=== PATIENT | female | born 1935 | race Caucasian/White ===

== ENCOUNTER 2024-12-09 05:53 | Emergency (ER) | payer MEDICARE, SELFPAY ==
--- OUTSIDE RECORDS SUMMARY | 2024-12-04 10:51 | XMS_ITS | Continuity of Care Document ---
Author Organization [facility] Address [address] [place] [id number] Phone Care Team Providers Care Needle Punch Operator Name Role Phone Gaby Dominguez MOLD SWABBER-C Primary Care Provider + Gaby Dominguez MOLD SWABBER-C Attending Provider [phone] Samuel Bailey DO Attending Provider Care Teams Patient Care Team Team Status: Active Member Role/Relationship Status Dates Gaby Dominguez NP-C Primary Care Provider Active Visit Care Team Team Status: Inactive Member Role/Relationship Status Dates Gaby Dominguez NP-C Primary Care Provider Active Start: October 04, 2024 End: October 04, 2024Rock Whipple ProviderActiveStart: October 04, 2024 End: October 04, 2024 Patient Care Team Team Status: Inactive Member Role/Relationship Status Dates Gaby Dominguez NP-C Primary Care Provider Active Start: December 04, 2024 End: December 04micheal Bailey DOAttlorena ProviderActiveStart: December 04, 2024 End: December 04, 2024 Chief Complaint and Reason for Visit Chief Complaint Admit Date N18.32 E56.9 October 04, 2024 3: 18pm Reason for Visit Admit Date Mild cognitive impairment December 04, 2024 1:29pm Parkinsons disease December 04, 2024 1 :29pm Reason for Referral Type Reason(s) Provider Provider Contact Information James portillo Address Start Date Mild cognitive impairment G31.84 - Mild cognitive impairment of uncertain or unknown jvtixsclN62.84 - Mild cognitive impairment of uncertain or unknown etiologyBe Determined , ToOctober 2024 Allergies, Adverse Reactions, Alerts Allergen Type Severity Reaction Last Updated Verified Status Comments Iodinated Contrast Media Allergy Unknown Unknown Reaction, hives December 04, 2024 1:37pm Yes Active latexAllergyUnknownThroat swells and welts on faceOctober 2024 1:37pmYes Activelatex glovesmethylprednisoloneAllergyUnknownnausea/vomittingOctober 2024 1:37pmYesActivemorphineAllergyUnknownSwelling of Lip/Tongue/Throat, hives December 04, 2024 1:37pmYesActivepenicillamineAllergyUnknownhivesOctober 2024 1:37pmYesActivePenicillinsAllergyUnknownHivesOctober 2024 1:37pmYes ActiveenvironmentalAdverse ReactionMildNauseaFebruary 2023 4:19pmNoActive Social History Smoking Status Status Start Date End Date Date of Observa tion Smokes tobacco daily (finding) April 07, 2024 7:16pm Observation Status Observation Response Date of Response Legal Sex Female (finding) [facility] 1935 Family History Relationship Condition Age at Onset Recorded Date/T willie father Family history of co ronary artery bypass surgery Unknown Malignant neoplasm of throatUnknownmotherMalignant neoplasm of colonUnknown brotherHistory of colectomyUnknownsisterRenal failureUnknownbrotherDiabetes mellitusUnknownfatherDiabetes mellitusUnknownHypertensionUnknownDeceasedUnknown Heart diseaseUnknownMalignant neoplasmUnknownfamily memberDeceasedUnknownmother Heart diseaseUnknownDeceasedUnknownMalignant neoplasmUnknownsisterDiabetes mellitusUnknown Problems Active Problems Problem Diagnosis/Recorded Date Onset Date Stat us Left lower quadrant pain November 20, 2018 9:33am Unkn own Active Low back pain November 06, 2018 6:50pm Unknown Active Elevated blood pressure reading March 12th, 2022 7:13p m Unknown Active Myalgia August 26, 2018 6:35pm Unknown Activ e Diverticulosis April 29, 2021 12:21pm Unknown A ctive Cystic lesion of pelvic viscera November 06, 2018 6 :50pm Unknown Active Lymphadenitis September 11, 2020 9:07pm Unknown Acti ve Lymphedema November 25, 2018 8:50pm Unknown Ac tive Community acquired pneumonia February 03, 2018 10:51 pm Unknown Active Mild cognitive impairment December 04, 2024 2:41pm Un known Active Vertigo April 01, 2017 11:46pm Unknown Active Hypokalemia due to loss of potassium April 29, 2021 9:12am Unknown Active Acute bronchitis August 26, 2018 6:35pm Unknown A ctive Rectal bleeding April 25, 2021 10:04pm Unknown Active Anemia associated with acute blood loss April 26 7:13pm Unknown Active Lower GI bleeding April 26, 2021 12:45pm Unknown Active GERD (gastroesophageal reflux disease) February 03, 2018 10:52pm Unknown Active Abdominal pain April 26, 2021 7:13pm Unknown Ac tive Hypertension April 29, 2021 12:20pm Unknown Act hoa Influenza February 03, 2018 10:51pm Unknown Active Parkinsons disease December 04, 2024 2:41pm Unknown Active Constipation November 17, 2018 2:13pm Unknown Act hoa Inactive/Resolved Problems Problem Diagnosis/Recorded Date Onset Date Stat us UTI (urinary tract infection) April 07, 2024 10:0 2pm Unknown Resolved Contusion of elbow November 08, 2023 3:28pm Unknown Resolved Laceration of right ear lobe April 07, 2024 9:59p m Unknown Resolved Syncope April 07, 2024 9:59pm Unknown R esolved Head injury April 07, 2024 10:02pm Unknown Resolved Medications Medication Status Dose Units Route Directions Qty Days Refills S tart Date Stop Date End Date Reason(s) Instructions Adherence Azithromycin 250 mg tablet Discontinued 250 MG PO Q12H February 03, 2018 1:00amDecember 2017 1:24pmPrednisone 20 mg tablet Yjcmscrqyrnh53OMZJLfyhzHxmhqplc 20th, 2018 1:00amDecember 2017 1:24pm Codeine-Guaifenesin (Guaifenesin Ac) 10-100 mg/5 mL liquidDiscontinuedDececobalt [facility] 2017 1:00[facility] 2017 4:43pmRopinirole 0.5 mg tabletDiscontinued 0.5MGPOBedtimecobalt rehabilitation ([facility]) hospital 2017 1:00amJuly 2018 4:39pmOseltamivir (Tamiflu) 30 mg DqlrajiEsxkqglyreru98ZJAPKeehk xjdkt27Swvnnemb 2017 1:00am August 26, 2018 4:38pmLevofloxacin 750 mg dmbhkjDckbjhhwoflo636FZZPEwjmq 48 lemmi321Vbponowa 2017 1:00amJuly 2018 4:38pmGuaifenesin (Mucinex) 600 mg Tablet Extended Release 27zhXmbdgaquweoz421JDBFEoqed beqkg3564Hdamacbc 2017 1:00amJuly 2018 4:38pmAlbuterol Sulfate (Ventolin Hfa) 90 mcg/actuation HFA aerosol ohyquqgQfjtbxcutzok1NRDUIYBOIPDPWZACKC 4-6 HOURS as needed for shortness of breath or bnnmwtab63Vrpnbwqa 2017 1:00amOctsaint joseph berea 2018 2:26pmDoxycycline Hyclate 100 mg pkffmsEvukkxiczcra020HPIIYpvir daily 55054Mmcw 2020 12:00amMarch 2021 10:00pmCephalexin 500 mg capsule Mfrxgt399WWFBRylgz times gefod53044Cxuhgffs 2024 1:00amComplies with drug therapyTrazodone 100 mg wmnwmhMvyien67PRYMQypfy at bedtimeFebruary 2017 1:00aminsomniaComplies with drug therapyParoxetine Hcl 20 mg tabletDiscontinued 20MGPODailyFebruary 2017 1:00amMarch 2021 4:10pmanxiety Hydroxychloroquine 200 mg QlabmsQmoxsksmkjbv578RJXZCdeomRdmgjgiu 2017 1:00amJuly 2018 4:38pmOndansetron (Zofran Odt) 8 mg tablet,disintegrating Hhuycyewsswo3TYYRI6F as needed for leiqib4589Flwccwbv 2017 1:00amFebruary 2017 1:00amFebruary 2017 1:04amMeclizine 25 mg hzoqphTmjrvsdmlvii80 MGPOTwice daily as needed for lsrmxmz359Wcktcxbf 2017 1:00amly 2018 4:38pmHydrocodone-Acetaminophen (Sigel) 5-325 mg lgogwpHbxidupoeqxc9UTFGP EVERY 4-6 HOURS as needed for yyew8771Deuajhifv 30th, 2018October 2017 12:00amOctober 2017 12:01amStrain of muscle, fascia and tendon of lower back, initial encounterDiclofenac Sodium (Voltaren) 1 % dytSraatbjjvabt8LC TOPICALTwice liidm2574Isfuywmkp 30th, 2018 12:00amDecember 2017 9:08pm apply to lower backAspirin 81 mg Tablet,Delayed Release (Dr/Ec)Qsqwtazsvohq42SZ PODailyDeceer 2017 1:002018 4:38pmOmeprazole 20 mg Capsule,Delayed Release(Dr/Ec)Sbuaoevurvvz22EHCUIlwoiAwzcrygf 14th, 2018 1:00am November 25, 2018 8:06pmgerdCephalexin (Keflex) 500 mg ksmjsceDkhlnxtoqgdi100RF WHL02B625Kkvzmihq 2017 1:002017 1:24pmPrednisone 10 mg PzotcrFurhrvgrourd39YCKAXugyxHafr 2018 12:00amSept2018 5:19pm Levofloxacin 500 mg LeihhkHhkjebjexaft971SRMOAhrdwLapt 12th, 2019 12:00Ju2018 6:30pmAzithromycin (Zithromax Z-Sami) 250 mg pmmcpcTdycbdsjqbdm520DFSI As Fpyjkpzi56SqbyAugust 26, 2018 12:00amSept2018 5:19pm2 po on day 1, then 1 po QD x 4 daysPrednisone 20 mg wfcusyJvcdejucvthw87WGYVOzggy raelbwy044 August 26, 2018 12:00amSept2018 5:19pmin addition to daily prednisoneHydrocodone-Acetaminophen (Sigel) 5-325 mg jxiwymPwjlvdijewxv0XCEEWT3T as needed for cqjk9021Tbnw2018Sept2018 5:19pmOther chest pain Sennosides-Docusate Sodium (Senna Plus) 8.6-50 mg gcmsupJbizcuoynbiv8QWALPJiodz at bedtime as needed for cqepejztonzj524Ukub 2018 12:00amSeptember 2018 5:19pmHydroxychloroquine (Plaquenil) 200 mg MuatmuIwqvay364BIJKFmtoz November 06, 2018 12:00amlupusComplies with drug therapyHydrocodone- Acetaminophen (Sigel) 5-325 mg rrvwcxBntyeaskicee3WEXSSQ4M as needed for fxce366 0pt2018October 2018 8:06pmLow back painSennosides-Docusate Sodium (Senna Plus) 8.6-50 mg eoqfbtIcjraogwnrfd9IUHKREtgdu at bedtime as needed for xfyhcxnomkmb070Mqazsgrxa 2018 12:00amMarch 2021 7:34am Polyethylene Glycol 3350 (Miralax) 17 gram/dose HljfolTftuqnajufip77URCXRttzw November 17, 2018 12:00amMarch 2021 7:34amHydrocodone-Acetaminophen (Sigel) 5-325 mg fwwnfoArwndpewrxdb5QJZXML8G as needed for wjvm4667Azslaha 2018October 2018 8:06pmOther acute postprocedural painHydrocodone- Acetaminophen 5-325 mg LjjofuMynopuioaeol3PSAYXT9T as needed for Otpy2Vjdhosx 2018October 2018 8:06pmOmeprazole 20 mg Capsule,Delayed Release(Dr/Ec)Evfsom26RQRXQliar5Dhjdbya 2018 12:00amComplies with drug therapyAzithromycin 500 mg ozcbonQgvqtsrgxscw941EBWTMcfkfUjc 2020 12:00am April 25, 2021 9:59pmstart 06/25/20Dexamethasone 4 mg ksafmpEcgqvtdsbnpn0GCGE Twice dailyMay 2020 12:00amMay 2020 1:03pmFurosemide 20 mg tablet Ajmsuewquujq11TRLUXzqlfNvq 2020 12:00amMay 2020 1:03pmPrednisone 10 mg yimxgvWkneltwvzywu96USGEQvuss939Fjg 2020 12:00amMarc 2021 9:58pm take 40mg (4tabs) for 3 days, then 20mg (2tabs) for 3 days, then 10mg (1tab) for 3 days.Cefdinir 300 mg kyinfrgXvbcybuxwqwp888TISEFpzfz lugkm981WdjJune 28, 2020 12:00amMarc 2021 9:59pmFurosemide 20 mg qkujpnJpvdqkacqncw42HMZZTtxol wopqt82FheJune 28, 2020 1:03pm[facility] 2021 9:59pmParoxetine Hcl 30 mg tablet Tczwgi82YFVIJnyqiSomkf 2021 1:00amComplies with drug therapyFurosemide 40 mg GthcbtLsxblx90KVFLIshqc at 034245873Johce 2021 12:00amComplies with drug therapySennosides-Docusate Sodium (Stool Softener-Stimulant Laxat) 8.6-50 mg EgdzcwCaqcdy3LHSDHZrjbw at crpbrbs698398Mhxtu 2021 12:00amComplies with drug therapyHydrochlorothiazide 12.5 mg OzluhkVjbkdo13.5MGPODaily at [id number] April 28, 2021 12:00amComplies with drug therapyPolyethylene Glycol 3350 (Miralax) 17 gram/dose TolmbvSxfmos92YJNVHjgwy erbcd8906Delge 2021 7:54am Complies with drug therapySpironolactone 50 mg IkzbhkAmeofi42UXZHBjzrs945Vwrob 2021 12:00amComplies with drug therapyFerrous Sulfate (Iron (Ferrous Sulfate)) 325 mg (65 mg iron) ctfkfpBaaeqvavgcnf491CKMJK5B254Epfpn 2021 12:00amOctsaint joseph [facility]rea 2024 1:37pmPotassium Chloride 20 mEq tablet extended dphwtsgDrqlfr69VLAJCUcwbi qmnsg862Jipza 2021 12:00amComplies with drug therapyCarbidopa-Levodopa (Sinemet) 25-100 mg tabletActive0.5TABPOThree times vjkby526Dyorqrm 20th, 2025 12:00amtake 1/2 tab at noon, 4pm and 8pmComplies with drug therapy Immunizations Immunization Event Date Not Given Reason Dose Number Assembly Detailer Lot Number Reason(s) Given Vaccine Information Statement (VIS) Detail Administration Location Tetanus, Diphtheria, Pertussis (Tdap) March 192024 N709IHijojccetC[facility] Relevant Diagnostic Tests and/or Laboratory Data Laboratory Results Test Collection Date/Time Result Date/Time Result Interpretation Reference Range Result Comment Performing Site Corrected White Blood Count October 04, 2024 3:33pm October 04, 2024 4:44pm 5.0 10*3/uL 3.8-11.6[facility] [id number] [address] [facility] [address]38[address]Xzngewdfaej WBC CountAugust 2024 3:33pmAugust 2024 4:44pm5.0 10*3/uL3.8-11.6FF[facility] [id number] [address] [facility] 25925Ugt Blood CountAugust 2024 3:33pmAugust 2024 4:44pm 3.71 10*6/uL3.60-5.00[facility] [id number] [address] [facility] 264[address]WpqbtjizyiSugdpx 2024 3:33pmAugust 2024 4:44pm10.1 g/dLBelow low awcjcr25.8-15.4FF[facility] [id number] [address] [facility] 51161IwizsoizmfOfvgec 2024 3:33pmAugust 2024 4:44pm30.6 %Below low ettykb99.0-46.4FF[facility] [id number] [address] [facility] 00879Jfry Corpuscular VolumeAugust 2024 3:33pmAugust 2024 4:44pm82.4 gS29-258YvbxqeeevCleveland Clinic [facility] [id number] [address] [facility] 84424Qvfg Corpuscular HemoglobinAugust 2024 3:33pmAugust 2024 4:44pm27.1 pg24.7-34.3FF[facility] [id number] [address] [facility] 22151Yogn Corpuscular Hemoglobin ConcentAugust 2024 3:33pm October 04, 2024 4:44pm32.9 g/dL32.0-35.0[facility] [id number] [address] [facility] 15520Vmq Cell Distribution WidthAut 2024 3:33pmAugust 2024 4:44pm16.9 %Above high sudgrn30.9-15.3FF[facility] [id number] [address] [facility] 42085Ijhjwgaf CountAugust 2024 3:33pmAugust 2024 4:44pm 316 10*3/xJ108-728WllufsvjtCleveland Clinic [facility] [id number] [address] [facility] 57494Yifv Platelet VolumeAut 2024 3:33pmAugust 2024 4:44pm7.8 fL6.3-10.7FF[facility] [id number] [address] [facility] 99093Tphkaauqkmh (%) (Auto)October 04, 2024 3:33pmAugust 2024 4:44pm69.0 %.[facility] [id number] [address] [facility] 20276Npbzudobmdw (%) (Auto)October 04, 2024 3:33pmAugust 2024 4:44pm15.9 %.[facility] [id number] [address] [facility] 15082Kozjypvey (%) (Auto)October 04, 2024 3:33pmAugust 2024 4:44pm12.8 %.[facility] [id number] [address] [facility] 53039Apctvfazzks (%) (Auto)October 04, 2024 3:33pmAugust 2024 4:44pm1.6 %.[facility] [id number] [address] [facility] 63674Kwzpokuzj (%) (Auto)October 04, 2024 3:33pmAugust 2024 4:44pm0.7 %.[facility] [id number] [address] [facility] 37385Jffxmrhub RBC Relative Count (auto)October 04, 2024 3:33pm October 04, 2024 4:44pm0.1 /100{WBC}0-0.5FF[facility] [id number] [address] [facility] 47696Ilbwdyeukye # (Auto)October 04, 2024 3:33pmAugust 2024 4:44pm3.4 10*3/uL1.8-7.7FF[facility] [id number] [address] [facility] 75297Vxkbmrvwgtp # (Auto)October 04, 2024 3:33pmAugust 2024 4:44pm0.8 10*3/uLBelow low normal1.00-4.8[facility] [id number] [address] [facility] 513[address]Xitmyohdo # (Auto)October 04, 2024 3:33pmAugust 2024 4:44pm0.6 10*3/uL0.0-0.8[facility] [id number] [address] [facility] 82315Toltqsnqlix # (Auto)October 04, 2024 3:33pmAugust 2024 4:44pm0.1 10*3/uL0.0-0.45[facility] [id number] [address] [facility] 18843Jpymwkhrb # (Auto)October 04, 2024 3:33pmAugust 2024 4:44pm0.0 10*3/uL0.0-0.2FF[facility] [id number] [address] [facility] 95209Davpvpe LevelAugus2024 3:33pmAugust 2024 5:46pm76 mg/pX76-636EZP recommended reference rangeRandom Glucose Reference Range is dependent on time and content of last meal. Glucose of more than 200 mg/dL in a nonstressed, ambulatory subject supports the diagnosisof Diabetes Mellitus. [facility] [id number] [address] [facility] 39894Sbjxs Urea NitrogenAugust 2024 3:33pmAugust 2024 5:46pm24 mg/dL7-25[facility] [id number] [address] [facility] 63488AumprwyjugHhlfqf 2024 3:33pmAugust 2024 5:46pm1.21 mg/dLAbove high normal0.60-1.20[facility] [id number] [address] [facility] 52752Xkyqqcgvg GFR (CKD-EPI)October 04, 2024 3:33pmAugust 2024 5:46pm43.377 mL/MinCleveland Clinic Union Hospital Ctr [id number] [address] [facility] 98112Knwybm LevelAugust 2024 3:33pmAugust 2024 5:14zh801 mmol/D168-794YmcpbjhkcCleveland Clinic Union Hospital [facility]tr [id number] [address] [facility] 11414Aqmgqtzal LevelAugust 2024 3:33pmAugust 2024 5:46pm 4.8 mmol/L3.5-5.1FF[facility] [id number] [address] [facility] 15160Ioephlbv LevelAugust 2024 3:33pmAugust 2024 5:46pm 102 mmol/C55-267QdrvgtfghCleveland Clinic Union Hospital [facility] [id number] [address] [place] 8611[address]Carbon Dioxide LevelAugust 2024 3:33pmAugust 2024 5:46pm28.3 mmol/L21.0-31.0[facility] [id number] [address] [facility] 95096Asrrm GapAugust 2024 3:33pmAugust 2024 5:46pm10.5 mEq/L6.0-15.0[facility] [id number] [address] [facility] 95173Ngofllu LevelAugust 2024 3:33pmAugust 2024 5:46pm 8.6 mg/dL8.6-10.3FF[facility] [id number] [address] [facility] 98412Wgipw ProteinAugust 2024 3:33pmAugust 2024 5:46pm 6.7 g/dL6.4-8.9[facility] [id number] [address] [facility] 30034JzvlwcsSymszg 2024 3:33pmAugust 2024 5:46pm4.1 g/dL 3.5-5.7FF[facility] [id number] [address] [facility] 07550TtgmahtwDjzqrw 2024 3:33pmAugust 2024 5:46pm2.6 g/dLCleveland Clinic Union Hospital Ctr [id number] [address] [facility] 87082Jodluun/Globulin RatioAugust 2024 3:33pmAugust 2024 5:46pm1.6FF[facility] [id number] [address] [place] [address] 95425Iotnb BilirubinAugust 2024 3:33pmAugust 2024 5:46pm 0.4 mg/dL0.3-1.0[facility] [id number] [address] [place] [address] 32354Tzwyjummf Amino Transf (AST/SGOT)October 04, 2024 3:33pmAugust 2024 5:46pm19 U/W89-39BoxhssgrcCleveland Clinic Union Hospital [facility]tr [id number] [address] [place] [address] 55781Bbnevbp Aminotransferase (ALT/SGPT)October 04, 2024 3:33pm October 04, 2024 5:46pm9 U/L7-52[facility] [id number] [address] [place] [address] 28337Ozzthvmg PhosphataseAugust 2024 3:33pmAugust 2024 5:22vu982 U/M07-840HawyijqgeCleveland Clinic Union Hospital Ctr [id number] [address] [place] [address] 34984Yqridse B12 LevelAugust 2024 3:33pmAugust 2024 6:68yo196 pg/dE225-099SslvijxcvCleveland Clinic Union Hospital Ctr [id number] [address] [facility] 0794581-Jqtoewh Vitamin D TotalAugust 2024 3:33pmAugust 2024 6:14pm32.7 ng/tN20-131SAGAZZW D STATUS 25(OH)VITAMIN D RANGE (ng/mL) Deficient <20 Insufficient 20 to <48Qkvmwdofom83 to 100Reference: Ilsa MF,Bobo NC, Pierce JC, et al. Evaluation,treatment, and prevention of vitamin D deficiency; an Endocrine Society clinical practice guideline. JCEM. 2010; 96(7):1911-30.[facility] [id number] [address] [facility] [address]44[address]Enzwoane Creatinine Clearance (ChemAugust 2024 3:33pm October 04, 2024 5:46pmN/[facility] [id number] [address] [facility] [address] Vital Signs Vital Reading Result Reference Range Collection Date/Time Height 62.5 [in_i] December 04, 2024 1:21esKiprki63.56 kgOctsaint joseph berea 2024 1:32pmHeart Rate86 /sfy94-892Evxxtpj 2024 1:32pmRespiratory rate18 /ftm25-42Iuvttlz 2024 1:32pmOxygen saturation by Pulse gehuayst87 %95-100Octsaint j[facility] 2024 1:32pmBP Kbcwmtse204 mm[Hg]100-140Octsaint j[facility] 2024 1:32pmBP Hhlrvsvre89 mm[Hg] 60-100Octsaint j[facility]rea 2024 1:32pmBMI (Body Mass Index)30.7 kg/m8Kamkvjs 2024 1:32pm Advance Directives Advance Directive Response Recorded Date/ Time Advance Directives No March 10:09pm Insurance Providers Guarantor Trinidad Bolivar Address [address] [address] [address]Ivuatwc Info.Home Phone: Payer Group Member ID Coverage Type Subscriber Relationship to Subscriber Effective Date Expiration Date Medicare Id: [id number] B Hermes Id: [id number] [address] [address] Home Phone: self Encounters Encounter Location(s) Arrival/Admit Date Discharge/Departure Date Discharge/Departure Disposition Provider(s) Departed Clinical -Lab [facility] October 04, 2024 3:18pm October 04, 2024 3:19pm Discharged to home care or self care (routine discharge) DAKOTA Whipple Departed Physician/ Provider Office Visit -[facility] December 04, 2024 1:29pm December 04, 2024 2:50pm Discharged to home care or self care (routine discharge) Marcial Shearer DO Recent Diagnosis Onset Date Admit Date Mild cognitive impairment Unknown Octobe r 2024 1:29pm Parkinsons disease Unknown December 04, 2024 1:29pm Assessments Diagnosis Onset Date Resolution Status Admit Date Mild cognitive impairment acuteOct2024 1:29pmParkinsons diseaseacuteOct2024 1:29pm Plan of Treatment Author [facility] 20[facility] 2:45pmIt is my impression that the patient has signs and symptoms of Parkinson's disease. This includes a rest tremor on the right, bradykinesia and rigidity bilaterally along with gait instability. CT scan of the brain in March was essentially unremarkable. Plan: Start Sinemet 25/100 immediate release 1/2 tablet p.o. 3 times daily at noon, 4 PM and 8 PM. The patient typically wakes up at noon and goes to bed at midnight. If she responds well to this we will likely need to increase it at follow-up Patient may also be a candidate for further therapy once we have medication intervention The patient has memory impairment which I believe may be a part of the neurodegenerative process above. However, there is also a possibility that this is a mild cognitive impairment type process. She did have a CT scan of the brain in March which was unremarkable. B12 in September was within normal limits. Plan: Neuropsych analysis to further delineate the patient's cognitive symptoms and understand type and severity. Future Tests Future scheduled test information is unavailable Pending Tests Pending diagnostic test information is unavailable Future Visits Future appointment information is unavailable Future Procedures Future procedure information is unavailable Future Medications Future medication information is unavailable Patient Instructions Patient instructions are unavailable Hospital Discharge Instructions Ambulatory Orders* Referral to Neuropsychology Location: None Selected
[2024-12-09] VITALS (20 sets, daily range): BP systolic 149–205; BP diastolic 60–86; PULSE 59–112; TEMP 36.8; O2SAT 95–98; BMI 30.5
--- OUTSIDE RECORDS SUMMARY | 2024-12-09 06:01 | XMS_ITS | Patient Health Record ---
Author Organization [facility] Address [address] [facility] [place] [address] Care Team Providers Care Barkeeper Name Role Phone Gaby Dominguez Primary Care Provider Allergies Allergen (clinical drug ingredient) Drug/Non Drug Allergy documented on EMR Reaction Allergy Type Onset Date Status morphine Morphine anaphylaxis Drug Allergy ActivePenicillinanaphylaxisDrug AllergyActive Results Component Value Reference Range Notes GNURI - Complicated Genitour inary Infection (HTRx) Reviewed date:09/12/2024 09:26:48 AM Interpretation: Performing Lab: Notes/Report: Acinetobacter baumannii 0 19.961 - 24.689 p pm Acinetobacter baumanniiNot Jspmwpyh58.961 - 24.689 ppmAtopobium jucqast918.961 - 24.689 ppmAtopobium vaginaeNot Qmhbpbwk32.961 - 24.689 ppmBVAB 2,3 (bacterial vaginosis associated bacteria 2, 3); Mobiluncus yby243.961 - 24.689 ppmBVAB 2,3 (bacterial vaginosis associated bacteria 2, 3); Mobiluncus sppNot Qneyizne95.961 - 24.689 ppmCandida albicans, parapsilosis, izhvgyvlix549.000 - 30.347 ppm Martha albicans, parapsilosis, tropicalisNot Ovzmrkgx15.000 - 30.347 ppmCandida glabrata (Nakaseomyces glabratus)023.000 - 31.618 ppmCandida glabrata (Nakaseomyces glabratus)Not Gtitguyf21.000 - 31.618 ppmCandida krusei (Pichia kudriavzevii)023.000 - 30.873 ppmCandida krusei (Pichia kudriavzevii)Not Yjocgvxz42.000 - 30.873 ppmChlamydia ykggfgmesru849.000 - 31.586 ppmChlamydia trachomatisNot Ycomgohg13.000 - 31.586 ppmCitrobacter sianhhxr089.000 - 32.015 ppmCitrobacter freundiiNot Ikgusmzn83.000 - 32.015 ppmEnterobacter aerogenes, stagbtu186.000 - 32.290 ppmEnterobacter aerogenes, cloacaeNot Fyzrneku03.000 - 32.290 ppmEnterococcus faecalis, ftbgswi374.000 - 33.043 ppmEnterococcus faecalis, faeciumNot Spjvlbgb62.000 - 33.043 ppmEscherichia nhfz882.000 - 28.500 ppmEscherichia coliNot Dvczhhzm15.000 - 28.500 ppmGardnerella jomzpoccf908.961 - 24.689 ppmGardnerella vaginalisNot Opiwxnen44.961 - 24.689 ppmKlebsiella pneumoniae, .000 - 31.865 ppmKlebsiella pneumoniae, oxytocaNot Kwpcckwb40.000 - 31.865 ppmMegasphaera (Types 1, 2)019.961 - 24.689 ppm Megasphaera (Types 1, 2)Not Gkdwibkh22.961 - 24.689 ppmMorganella morganii0 19.961 - 24.689 ppmMorganella morganiiNot Ziskvsud61.961 - 24.689 ppmNeisseria grsvtrkzygc627.000 - 32.587 ppmNeisseria gonorrhoeaeNot Gchcmcfb60.000 - 32.587 ppmProteus mirabilis, uytjsnuj507.000 - 28.500 ppmProteus mirabilis, vulgarisNot Bcectbvk50.000 - 28.500 ppmPseudomonas tjvikuumwe772.000 - 31.801 ppmPseudomonas aeruginosaNot Vfsojxfh50.000 - 31.801 ppmSerratia xydoezlbmr021.000 - 31.581 ppm Serratia marcescensNot Hhhjsdff08.000 - 31.581 ppmStaphylococcus keqodg970.000 - 31.595 ppmStaphylococcus aureusNot Akmyqxce66.000 - 31.595 ppmStreptococcus agalactiae (Group B Strep)026.000 - 32.435 ppmStreptococcus agalactiae (Group B Strep)Not Uucfcyyq84.000 - 32.435 ppmStreptococcus pyogenes (Group A strep)0 19.961 - 24.689 ppmStreptococcus pyogenes (Group A strep)Not Gntbxvpi56.961 - 24.689 ppmTrichomonas sbfzjydwr592.000 - 31.995 ppmTrichomonas vaginalisNot Cxxrwqxp38.000 - 31.995 ppmStaphylococcus epidermidis, haemolyticus, lugdunensis 019.961 - 24.689 ppmStaphylococcus epidermidis, haemolyticus, lugdunensisNot Dqgnkyms97.961 - 24.689 ppmStaphylococcus .961 - 24.689 ppm Staphylococcus saprophyticusNot Peubdbpg99.961 - 24.689 ppmMycoplasma genitalium 019.961 - 24.689 ppmMycoplasma genitaliumNot Qabbjysi28.961 - 24.689 ppm Mycoplasma hpffuby757.961 - 24.689 ppmMycoplasma hominisNot Ioqlsupa61.961 - 24.689 ppmUreaplasma .961 - 24.689 ppmUreaplasma parvumNot Detected 19.961 - 24.689 ppmUreaplasma abhibcbhzcc041.961 - 24.689 ppmUreaplasma urealyticumNot Vsjhcpye13.961 - 24.689 ppmVitamin D 25 Hydroxy Reviewed date:11/21/2024 08:03:29 AM Interpretation: Performing Lab: Notes/Report: Vit B12 Reviewed date:11/21/2024 08:04:15 AM Interpretation: Performing Lab: Notes/Report: CMP Reviewed date:11/21/2024 08:05:32 AM Interpretation: Performing Lab: Notes/Report: CBC w/ Auto Diff Reviewed date:11/21/2024 08:02:36 AM Interpretation: Performing Lab: Notes/Report: Urinalysis un-automated Reviewed date:09/08/2024 03:58:28 PM Interpretation: Performing Lab: Notes/Report: Urine-ColoryellowAppearanceclearSpecific Gravity1.010pH6.0GlucosenegProteinneg Occult BloodnegBilirubinnegUrobilinogen,Semi-Qn0.2Nitrite, UrinenegKetonesnegWBC Aznnbcwv13 Reason For Referral Reason *FAXED 09/11 Memory changes and falls. Patient lives in [place]. Diagnosis 1 Memory changes (R41. 3) Referral Organization [facility] Referring Provider First Name Gaby Referring Provider Last Name Alberto Referring Provider Speciality Nurse Alber araiza Referred Provider [facility], . Referred Provider Specialty Neurology Referral Priority Routine Medications Medication SIG (Take, Route, Frequency, Duration) Notes Start Date End Date Status PARoxetine HCl 40 MG Tablet 1 tablet in the morning Orally daily; Duration: 90 days ActiveHydroxychloroquine Sulfate 200 MG Tablet1 tablet Orally daily; Duration: 90 daysActiveLisinopril-hydroCHLOROthiazide 10-12.5 MG TabletTAKE 1 TABLET BY MOUTH IN THE MORNING Oral; Duration: 90 DaysNot-Taking/PRNLisinopril- hydroCHLOROthiazide 20-12.5 MG Tablet1 tablet Orally Once a day; Duration: 90 days09/08/2024tive Social History Tobacco Use: Social History Observation Description Date Details (start date - stop date) Never Smoker NA - NA Sex Assigned At : Social History Observation Description Sex Assigned At Female Social History Drug/Alcohol:Social InfoQuestionAnswerNotesAUDIT-C (Standard)Did you have a drink containing alcohol in the past year?HlBeqkyn6DrejtqhfnndqsxEakijipyKloowwu Use:Social InfoQuestionAnswerNotesTobacco Control (Standard)Tobacco use: Nonsmoker Problems Problem Type SNOMED Code ICD Code Onset Dates Problem Status W/U Status Risk Notes Problem Syncope and collapse (067510196) Syncope and collapse (R55) 04/07/2024 Active confirmed ProblemVitamin deficiency (23412538)Vitamin deficiency (E56.9)Activeconfirmed ProblemAmnesia (25771026)Memory changes (R41.3)ActiveconfirmedProblemEpigastric pain (95767376)Epigastric pain (R1013)11/10/2011ctiveconfirmedProblemStage 3b chronic kidney disease (CKD) ([facility]) (N18.32)04/15/2023ctiveconfirmedProblem Benign paroxysmal vertigo, bilateral (H8113)04/01/2017ActiveconfirmedProblem Acute diastolic heart failure (276318788)Acute diastolic (congestive) heart failure (I5031)01/20/2022ctiveconfirmedProblemIron deficiency anemia (17592290) Iron deficiency anemia, unspecified (D509)05/19/2022ctiveconfirmedProblem Gastro-esophageal reflux disease without esophagitis (205944083)Gastro- esophageal reflux disease without esophagitis (K219)08/25/2017Activeconfirmed ProblemHypokalemia (72114896)Hypokalemia (E876)04/29/2021ctiveconfirmedProblem Gastrointestinal hemorrhage (85786380)Gastrointestinal hemorrhage, unspecified (K922)06/19/2021ctiveconfirmedProblemFrequency of micturition (419436569) Frequency of micturition (R350)04/15/2023ctiveconfirmedProblemNonspecific lymphadenitis, unspecified (I889)09/11/2020ctiveconfirmedProblemDisorder of urinary bladder (46556762)Other specified disorders of bladder (N3289)09/06/2023 ActiveconfirmedProblemInjury of head (48724407)Unspecified injury of head, initial encounter (I3215BK)5ActiveconfirmedProblemBenign neoplasm of cerebral meninges (32018977)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) 09/09/2021ctiveconfirmedProblemPrimary insomnia (6264314)Primary insomnia (F51.01)10/14/2016ActiveconfirmedProblemRestless legs syndrome (26373712) Restless legs syndrome (G25.81)02/03/2018ActiveconfirmedProblemPrimary osteoarthritis (713728967)Unilateral primary osteoarthritis, right knee (M17.11) 12/25/2022ctiveconfirmedProblemEpigastric pain (37139705)Epigastric pain (R10.13)11/10/2011ctiveconfirmedProblemHypertension (97895978)Hypertension (I10)07/22/2023ctiveconfirmedProblemAcute bronchitis (03373221)Acute bronchitis (J20.9)07/22/2023ctiveconfirmedProblemChronic pain (26056971)Chronic pain (G89.29)12/25/2022ctiveconfirmedProblemGastroesophageal reflux disease (459867818)GERD without esophagitis (K21.9)08/25/2017ActiveconfirmedProblem Hypokalemia (27508912)Hypokalemia due to loss of potassium (E87.6)07/22/2023 ActiveconfirmedProblemConstipation by delayed colonic transit (32155517) Constipation by delayed colonic transit (K59.01)12/25/2022ctiveconfirmedProblem Otitis media (00679698)Otitis media (H66.90)12/25/2022ctiveconfirmedProblem Lymphedema (10345448)Lymphedema (I89.0)07/22/2023ctiveconfirmedProblem Lymphadenitis (25884168)Lymphadenitis (I88.9)07/22/2023ctiveconfirmedProblem Diverticular disease of colon (475443717)Diverticulosis (K57.90)12/25/2022ctive confirmedProblemChest wall pain (359320645)Chest wall pain (R07.89)01/28/2019 ActiveconfirmedProblemHeart murmur (78766063)Cardiac murmur (R01.1)07/16/2019 ActiveconfirmedProblemEdema (712197527)Fluid retention in legs (R60.0)12/05/2018 ActiveconfirmedProblemCT of abdomen abnormal (77545760843162101)Abnormal CT of the abdomen (R93.5)12/25/2022ctiveconfirmedProblemBenign paroxysmal positional vertigo (342740992)Benign paroxysmal positional vertigo due to bilateral vestibular disorder (H81.13)02/23/2022ctiveconfirmedProblemModerate major depression, single episode (78939457)Current moderate episode of major depressive disorder without prior episode (F32.1)04/15/2023ctiveconfirmed ProblemBilateral tinnitus (9595180687388)Bilateral tinnitus (H93.13)09/09/2021 ActiveconfirmedProblemBenign neoplasm of cerebral meninges (39304363)Meningioma (D32.9)12/25/2022ctiveconfirmedProblemAllergic rhinitis (36663503)Acute allergic rhinitis (J30.9)04/08/2017ActiveconfirmedProblemAcute diastolic heart failure (262485501)Acute diastolic CHF (congestive heart failure) (I50.31) 01/20/2022ctiveconfirmedProblemHistory of pneumonia (291658442)History of influenza pneumonia (Z87.01)01/28/2019ActiveconfirmedProblemSjogren's syndrome (14234023)Sjogren's syndrome (M35.00)09/18/2010ctiveconfirmedProblemMass of uterine adnexa (157852659)Mass of uterine adnexa (N94.89)09/09/2021ctive confirmedProblemPrimary osteoarthritis (067506031)Primary osteoarthritis (M19.91)09/09/2021ctiveconfirmedProblemSensorineural hearing loss, bilateral (943269421)Asymmetric SNHL (sensorineural hearing loss) (H90.3)12/25/2022ctive confirmedProblemAcute posthemorrhagic anemia (532696633)Anemia associated with acute blood loss (D62)07/22/2023ctiveconfirmedProblemLower GI bleeding (22721738)Lower GI bleeding (K92.2)07/22/2023ctiveconfirmedProblemLow back pain (288513129)Low back pain (M54.50)07/22/2023ctiveconfirmed Vital Signs Heart Rate 89 /min 11/20/2024 Hmhwqpqftjb57.8 degrees Kovixtfvyc38/06/2213Hhthkyer09 %11/20/2024lood pressure ryfhsrkss83 mm Hg11/20/20245428Wlpnzw33 in11/20/2024lood pressure spbnbkyo684 mm Hg 11/20/20240549Bzzsrv556.2 lbs1MI30.4 kg/m211/20/2024 Encounters Encounter Location Date Provider Diagnosis [facility] [address] [place] [address] 11/20/2024 Gaby Dominguez URI (upper respirato ry infection) J06.9 [facility] [address] [place] [address] 09/08/2024 Gaby Dominguez Current moderate epi sode of major depressive disorder without prior episode F32.1 ; Hypertension I10 ; Stage 3b chronic kidney disease (CKD) ([facility]) N18.32 ; Memory changes R41.3 ; Vitamin deficiency E56.9 ; Sjogren's syndrome M35.00 and Urinary tract infection, site not specified N39.0 Assessments Encounter Date Diagnosis (ICD Code) Assessment Notes Treatment Notes Treatment Clinical Notes Section Notes 11/20/2024 URI (upper respiratory infection ) (ICD-10 - J06.9) Pt symptoms and length are appropriate for antibiotics. Discussed proper administration, take with food, increase oral fluids for hydrating. Take until gone. Nasal saline as needed. Flonase can also be helpful in reducing congestion, discussed proper administration and side effects. If you are not b ted in 7-10 days RTO May continue Mucinex. Increase fluids Start Zpak, Medrol dose pack as directed 09/08/2024Hypertension (ICD-10 - I10)Blood pressure is elevated today, 150/70. Increase lisinopril-HCTZ to 20mg-12.5 mg oral daily09/08/2024urrent moderate episode of major depressive disorder without prior episode (ICD-10 - F32.1) Patient reports her moods have been stable. She does admit she has been upset over the past few weeks about memory changes. Continue paroxetine 40 mg oral daily09/08/2024Stage 3b chronic kidney disease (CKD) ([facility]) (ICD-10 - N18.32) Check CMP. History of anemia secondary to CKD, check CBC. She stopped taking iron supplement. Education no NSAIDS.09/08/2024Memory changes (ICD-10 - R41.3) Patient reports subtle memory changes.Over the past 1-2 months. States she found herself putting toothpaste on her comb, when she thought it was her toothbrush. Another example she states was preparing to mop the floor and noticed there was no water in the bucket. Urinalysis done in office today. Referral to neurology for further evaluation.09/08/2024Vitamin deficiency (ICD-10 - E56.9)Is experiencing slight memory changes and falls recently. Check vitamin D and B12 level.09/08/2024Sjogren's syndrome (ICD-10 - M35.00)09/08/2024Urinary tract infection, site not specified (ICD-10 - N39.0)Urine dip reveals 1+ leaukocyte esterase. Send urine for culture. Allergies to PCN, history CKD. Start Cipro 250 mg oral twice daily for 5 days09/08/2024OtherBody Mass Index: Care Instructions material was printed Plan Of Treatment Next Appt Details Provider Name:Gaby Kellogg Jalyn velmakelsea, 12/21/2024 02:00:00 PM, [address] [place], [address], Insurance Providers Payer Name Payer Address Payer Phone Subscriber Number Group Number Insured Name Patient Relationship to Insured Coverage Start Date Coverage End Date [employer] [address] [address] [place] [phone] [id number] ONEAL RASCON Self - patient is the insured 4 MEDICARE [address] [place] [id number] Lucio RASCONf - patient is the [id number] 2000 Medical (General) History Medical History History ICD Code CKD HTNSjogren's Syndrome
--- OUTSIDE RECORDS SUMMARY | 2024-12-09 06:01 | XMS_ITS | Clinical Summary ---
Author Organization [facility] Address [address] [place] [address] Phone Care Team Providers Care Fine Grade Bulldozer Operator Name Role Phone Unavailable Primary Care Provider Unavailabl e Social History Tobacco UseTypesPacks/DayYears UsedDateSmoking Tobacco: Never Assessed CommentsUnknownSex and Gender InformationValueDate RecordedSex Assigned at Not on fileLegal KhwUyxnam92/26/2022 1:44 AM ESTGender IdentityNot on fileSexual OrientationNot on file Plan of Treatment Not on file
--- OUTSIDE RECORDS SUMMARY | 2024-12-09 06:01 | XMS_ITS | Clinical Summary ---
Author Organization [facility] Address [address] [place], [place] [address] Care Team Providers Care Trestle Mainternance Laborer Name Role Phone Jb Bowling MD Unavailable [phone] Gaby Dominguez CONTINUITY READER Unavailable [phone] Gaby Dominguez CONTINUITY READER Primary Care Provider [phone] Allergies Active AllergyReactionsCriticalityNoted DateCommentsGloves, ZcwihVcvm52/17/2007 Kidney Dye [Other]08/31/2006 Throat swells, welts EumefqwbPbrml30/15/8429Xhdnpgenrkx15/17/2007 Throat swells, welts Medications MedicationSigDispense QuantityRefillsLast FilledStart DateEnd DateStatus aspirin 81 mg ORAL chewable tablet Take 1 tablet by mouth once daily. 90 tablet 6005/15/2011ctive traZODONE 100 mg ORAL tablet Take 100 mg by mouth daily at bedtime. One tablet at bedtimeActive omeprazole (PRILOSEC) 20 mg capsule Take 20 mg by mouth once daily.Active PARoxetine (PAXIL) 30 mg tablet Take 30 mg by mouth once daily.12/20/2020ctive dicyclomine (BENTYL) 10 mg capsule Take 10 mg by mouth three times daily.06/19/2021ctive FEROSUL 325 mg (65 mg iron) tablet Take 1 tablet by mouth every 48 hours.07/01/2021ctive SENNA PLUS 8.6-50 mg per tablet take 2 tablets by mouth EVERY NIGHT07/25/2021ctive spironolactone (ALDACTONE) 50 mg tablet Take 50 mg by mouth every morning.05/21/2021ctive erythromycin (ROMYCIN) 5 mg/gram (0.5 %) ophthalmic ointment APPLY A 1 INCH RIBBON TO LEFT EYE EVERY NIGHT YYGVGIME75/03/2023ctive trifluridine (VIROPTIC) 1 % ophthalmic solution INSTILL 1 DROP INTO LEFT EYE 5 TIMES A DAY DIRECTED FOR 7 DAYS UNTIL FOLLOW UP03/03/2022ctive valACYclovir (VALTREX) 500 mg tablet take 1 tablet by mouth every 8 hours as directed for 10 days03/06/2022ctive hydrOXYchloroQUINE (PLAQUENIL) 200 mg tablet Take 1 tablet by mouth once daily.03/10/2022ctive linaclotide (LINZESS) 145 mcg capsule Take 1 capsule by mouth DAILY (6 AM). 30 capsule 05/19/2022ctive iv contrast (will be provided with radiology test) CT ABD/PEL -Inject, intravenously, once for 1 dose.No IV access, insert saline lock prior to the beginning of sedation, infusion, injection of imaging exam. Discontinue saline lock post exam. If Pt. has a central line or IVAD, may access for administration according to line specific nursing protocol. Once exam is complete flush line and de-access according to line specific nursing protocol in theCT contrast administration guidelines link. 1 Each 05/19/2022ctive Active Problems ProblemNoted DateDiagnosed DateVasculitis of skin12/14/2014Constipation 11/18/2011Epigastric pain11/10/2011Weight loss11/10/2011Pain05/14/2011Monoclonal brjbypwzvz63/16/2011Sjogren's sxrbmscu23/04/2011 Immunizations ImmunizationAdministration DatesNext Duepneumococcal polysaccharide (PPV23) vaccine, 23 valent (PNEUMOVAX 23)09/18/2010 Family History Medical HistoryRelationCommentsHeartBrother 3s/p open heart surgeryStrokeBrother 4CancerFatherCancerMotherKidney DiseaseSister 3RelationStatusCommentsBrother 1 (Age 61)Brother 9Mwzmf2 living brothersBrother 3Brother 4FatherDeceased (Age 91)MotherDeceased (Age 71)Sister 1Deceased (Age 75)Sister 0Pselx3 living sisterSister 3 Social History Tobacco UseTypesPacks/DayYears UsedDateSmoking Tobacco: NeverSmokeless Tobacco: Never Tobacco Cessation:Counseling Given: Not Answered Alcohol UseStandard Drinks/WeekCommentsNo0 (1 standard drink = 0.6 oz pure alcohol)CommentsNoSex and Gender InformationValueDate RecordedSex Assigned at BirthNot on fileLegal IaaUnkezu57/02/2012 8:52 AM ESTGender Identity Not on fileSexual OrientationNot on file Last Filed Vital Signs Vital SignReadingTime TakenCommentsBlood Jqtqcgts530/5904 11:07 AM EDT Qfcwh7911 11:07 AM SZXPfvsblegxrz59.5 ??C (97.7 ??F)03/10/2022 3:43 PM ESTRespiratory Gxef265110/03/2014 12:41 PM EDTOxygen Yybvrdrfyf62%05/19/2022 11:07 AM EDTInhaled Oxygen Concentration--Rofcvx71.7 kg (169 lb)05/19/2022 11:07 AM UNDYjevms176.8 cm (5' 2.5 )05/19/2022 11:07 AM EDTBody Mass Index30.4204 11:07 AM EDT Plan of Treatment Health MaintenanceDue DateLast DoneCommentsAnxiety Dzxisxpun03/22/1955Depression Lleajffys60/22/1955DTaP,Tdap,Td Vaccine (1 - Tdap)12/07/1955Shingrix Vaccine (1 of 2)1986Bone Density Avqlfbpjy22/22/2002RSV Vaccine (1 - 1-dose 75+ series)12/07/2011dvance Directive Efvdabsxag28/01/2025Medicare Advantage Annual Wellness Visit02/16/2024ovid-19 Vaccine (1 - 2024- season)2024 Influenza Vaccine (#1)2024Diabetes Mfxoqgrtf10/20/043441/, 03/23/2022, 01/20/2022, Additional history existsPneumococcal Vaccine: 50+ Jdhbbhelf04/10/2018, 09/18/2010 Procedures Procedure NamePriorityDate/TimeAssociated DiagnosisCommentsCOMPREHENSIVE METABOLIC RQCDQVdzugjl33/19/2015 9:56 AM EDT Monoclonal gammopathy from Last 3 Months or Most Recently Relevant to Health Maintenance Results * (ABNORMAL) COMP METABOLIC PANEL (10/03/2014 9:56 AM EDT)ComponentValueRef RangeTest MethodAnalysis TimePerformed AtPathologist SignatureProtein, Total 8.36.0 - 8.4 g/dL10/03/2014 11:51 AM [facility] Albumin4.33.5 - 5.0 g/dL10/03/2014 11:51 AM [facility]ORYCalcium9.18.5 - 10.5 mg/dL10/03/2014 11:51 AM [facility]Bilirubin, Total0.20.0 - 1.5 mg/dL10/03/2014 11:51 AM EDT [facility]kaline Okyhfhefxvq5999 - 150 U/L10/03/2014 11:51 AM [facility] VXUXPFWDPXICQ344 - 40 U/L10/03/2014 11:51 AM [facility] SMKFKTWHLMJgewdfb92(L)65 - 100 mg/dL10/03/2014 11:51 AM [facility] PJESVGVIYHBMN031 - 25 mg/dL10/03/2014 11:51 AM [facility] LABORATORYCreatinine0.960.70 - 1.40 mg/dL10/03/2014 11:51 AM [facility] LSOUFMBZHDRgfjip310991 - 148 mmol/L 10/03/2014 11:51 AM [facility]OR[facility]ORYPotassium3.63.5 - 5.0 mmol/L10/03/2014 11:51 AM [facility] WLNRSVSEQKHdoorwgn54537 - 110 mmol/L10/03/2014 11:51 AM [facility] ZYRAPCFDCJQY66960 - 32 mmol/L10/03/2014 11:51 AM [facility] LABORATORYAnion Mli610 - 15 mmol/L10/03/2014 11:51 AM [facility] LUQBYVKAMEXXB85 - 45 U/L 10/03/2014 11:51 AM [facility]ORATORYeGFR- >6008 11:51 AM [facility]ORATORYeGFR-All Other Races 56.10/03/2014 11:51 AM EDTCCLEVEL[facility] LABORATORYComment: eGFR (Estimated GFR) Units of measure: mL/min/1.73 meters squared eGFR is derived from the reexpressed MDRD Study equation using the following parameters: serum creatinine, age, gender and race. The creatinine assay has been calibrated to be traceable to IDMS. An eGFR <60 mL/min/1.73m2 for >3 months is consistent with chronic kidney disease. Refer to KDOQI guidelines for clinical interpretation. In patients with unstable renal function, e.g. those with acute kidney injury, the eGFR may not accurately reflect actual GFR. Specimen (Source)Anatomical Location / LateralityCollection Method / Volume Collection TimeReceived TimeBlood specimen (specimen)BLOOD SPECIMEN / Unknown 10/03/2014 9:56 AM EDT10/03/2014 9:58 AM EDT Narrative Authorizing ProviderResult TypeResult StatusChristy Bess Vieira DOLABORATORYFinal ResultPerforming OrganizationAddressCity/State/ZIP CodePhone Number [facility] [address] [place] [address] from Last 3 Months or Most Recently Relevant to Health Maintenance Insurance Care Teams Team MemberRelationshipSpecialtyStart DateEnd Gaby Dominguez CNP [address] [place] [address] PCP - GeneralInternal Medicine03/17/21 Jb Bowling MD [address] [place] [address] Primary Staff PhysicianCardiology05/03/18 Gaby Dominguez CONTINUITY READER [address] [place] [address] Internal Medicine03/12/21
--- OUTSIDE RECORDS SUMMARY | 2024-12-09 06:01 | XMS_ITS | Clinical Summary ---
Author Organization SeeToo tem Address [id number] [address] [place] [address] Care Team Providers Care Parts Puller Name Role Phone Donavon Handy APRN-GROUND SURVEILLANCE SYSTEMS OPERATOR Primary Care Provider + Allergies Active AllergyReactionsCriticalityNoted DateCommentsIodinated Contrast Media 10/06/2016Latex, Natural Eegilg3510/06/20169198Ffrngqovcdqmupikom51/27/2021 Other reaction(s): nausea/vomitting Gxieorlq63/22/3202Slcsjyupqad91/22/2017 Medications MedicationSigDispense QuantityRefillsLast FilledStart DateEnd DateStatus melatonin 10 mg capsule Take by mouth.Active CONSTULOSE 10 gram/15 mL solution take 15 milliliters by mouth every bywqucf7001/19/2023ctive cholecalciferol, vitamin D3, (VITAMIN D3) 5,000 units capsule Take 1 capsule (5,000 Units total) by mouth in the morning. 90 capsule ctive fluticasone propionate (FLONASE) 50 mcg/actuation nasal spray Indications:Chronic seasonal allergic rhinitis due to pollenAdminister 1 spray into each nostril in the morning. 16 g 11010/20/2023ctive omeprazole (PriLOSEC OTC) 20 mg EC tablet Indications:GERD without esophagitisTake 2 tablets (40 mg total) by mouth in the morning.10/20/2023ctive zogqvieckag-gcllkuqrs-wjcnnmtf (TRELEGY ELLIPTA) 100-62.5-25 mcg blister with device Indications:Interstitial lung disease (CMS-HCC)INHALE 1 PUFF BY MOUTH DAILY 60 each 309/ctive ipratropium-albuteroL (DUONEB) 0.5 mg-3 mg(2.5 mg base)/3 mL nebulizer Indications:Chest congestion,CoughINHALE 3ml via NEBULIZER EVERY 4 HOURS NEEDED FOR WHEEZING or SHORTNESS OF BREATH 90 mL ctive lisinopril-hydroCHLOROthiazide (PRINZIDE,ZESTORETIC) 10-12.5 mg per tablet Indications:Primary hypertensionTake 1 tablet by mouth in the morning. 90 tablet ctive PARoxetine (PAXIL) 40 mg tablet Indications:Current moderate episode of major depressive disorder without prior episode ([facility])Take 1 tablet (40 mg total) by mouth in the morning. 90 tablet ctive hydroxychloroquine (PLAQUENIL) 200 mg tablet Indications:Disorder of lung with Sjogren's syndrome ([facility]),Lupus erythematosus, unspecified formtake 1 tablet by mouth every morning 90 tablet ctive CEPHalexin (KEFLEX) 500 mg capsule TAKE 1 CAPSULE BY MOUTH THREE TIMES DAILY FOR 10 DAYS5Active Active Problems ProblemNoted DateDiagnosed DawbDuwpxfj16/11/2024Chronic diastolic congestive heart ehmvruv0404/15/2023urrent moderate episode of major depressive disorder without prior oaueqzf5004/15/2023Stage 3b chronic kidney disease (CKD)04/15/2023 Snblshihckumnc78/10/1749Dizaozfivg60/10/2023Benign paroxysmal positional vertigo due to bilateral vestibular /09/2023Acute diastolic CHF (congestive heart failure)01/20/2022enign neoplasm of cerebral tlgsjjor21/26/2022ilateral sensorineural hearing loss09/09/2021ilateral rwcdutfm83/26/2022Localized, primary osteoarthritis of hand09/09/2021Mass of uterine bzpton482Primary svvfpvwnibiyxh83/26/2022ardiac mdyldg3507/16/2019History of influenza pneumonia 01/28/2019Chest wall pain01/28/20194630Ovkkcjqqxgdk21/21/2019Fluid retention in legs 12/05/2018Seasonal allergic rhinitis due to kytgvu7106/20/2018Interstitial lung xbaefvn8003/08/2018Restless legs mxyyecns15/17/2018Acute allergic rhinitis 04/08/2017Primary yeqsckjo68/30/2017GERD without kcoeuzfmwgr61/30/2017Medicare annual wellness visit, bmmtzaaweh00/30/2017Vasculitis of skin12/14/2014 Monoclonal gpmbbrrurz55/16/2011Lupus erythematosusDisorder of lung with Sjogren's syndrome Resolved Problems ProblemNoted DateDiagnosed DateResolved DatePneumonia of right upper lobe due to influenza A virusInfluenza A1Muscle spasms of both lower mavkjjlqpdz12Lumbar muscle pain11/16/2017 08/22/2018 Encounters DateTypeDepartmentCare YrrrWbgzkrjxyyh91/21/2025Orders Only [facility] [address] [place] [address] Ref Prov, Not In System from Last 3 Months Immunizations ImmunizationAdministration DatesNext DuePneumococcal Conjugate 13-Valent 11/24/2017Pneumococcal Yesjsczppvaghq39/04/2011 Family History Medical HistoryRelationNameCommentsThroat cancerFatherColon cancerMother DepressionSisterBreast cancerNeg HxRelationNameStatusCommentsFatherDeceased MotherDeceasedSister Social History Tobacco UseTypesPacks/DayYears UsedDateSmoking Tobacco: NeverSmokeless Tobacco: NeverAlcohol UseStandard Drinks/WeekCommentsNo0 (1 standard drink = 0.6 oz pure alcohol)PHQ-2AnswerDate RecordedTotal Ipxoq411/11/2024ChildcareAnswerDate XhgtzccvEehmbygmrTviknxl73/12/2019EmploymentAnswerDate RecordedEmploymentUnknown 07/27/2018Hunger ScreeningAnswerDate RecordedWithin the past 12 months we worried whether our food would run out before we got money to buy more.Never True09/06/2023Within the past 12 months the food we bought just didn't last and we didn't have money to get more.Never True4Purpose - LifeAnswerDate RecordedPurpose and direction in pgleGiaduhx44/19/2021CommentsNoSex and Gender InformationValueDate RecordedSex Assigned at BirthNot on fileLegal Sex Fcyrgv4209/20/2014 11:25 AM EDTGender IdentityNot on fileSexual OrientationNot on file Last Filed Vital Signs Vital SignReadingTime TakenCommentsBlood Mjxgaaeh302/8003 4:26 PM EST Hbdxw308704/17/2024 4:26 PM VQBYykucmlhqvy89.5 ??C (97.7 ??F)04/17/2024 4:26 PM ESTRespiratory Bvxu1259 4:26 PM ESTOxygen Nvmeyqqdng59%04/17/2024 4:26 PM ESTInhaled Oxygen Concentration--Pwfapp60.8 kg (171 lb 9.6 oz)04/17/2024 4:26 PM MFEBjtjbh842.5 cm (5' 2 )04/17/2024 4:26 PM ESTBody Mass Index31.39004/17/2024 4:26 PM EST Plan of Treatment Health MaintenanceDue DateLast DoneCommentsZoster (Shingles) Vaccine (1 of 2) 1986Influenza Bphjtar9310/16/2024Depression Izkgrybpl67 Fall Risk Baflmbuyc72Medicare Annual Wellness Visit12/26/2024 12/27/2023, 09/09/2021, 02/07/2020, Additional history existsTobacco Screening DTaP,Tdap and Td Vaccines (2 - Td or Tdap)04/07/2034 04/07/2024 Medical Devices Not on file Procedures Procedure NamePriorityDate/TimeAssociated DiagnosisCommentsMULTIPLE LABSRoutine 10/04/2024 9:30 AM EDTCBC W AUTO DIFF TMDTzjpriu65/20/2025 9:28 AM EDTfrom Last 3 Months Results * Multiple labs (10/04/2024 9:30 AM EDT) Narrative Authorizing ProviderResult TypeResult StatusNot In System Ref ProvPR IMAGING Final ResultPerforming OrganizationAddressCity/State/ZIP CodePhone Number MANUALLY TRANSCRIBED RESULTS * CBC W Auto Diff Bld (10/04/2024 9:28 AM EDT) Narrative Authorizing ProviderResult TypeResult StatusNot In System Ref ProvLAB BLOOD ORDERABLESFinal ResultPerforming OrganizationAddressCity/State/ZIP CodePhone Number MANUALLY TRANSCRIBED RESULTS from Last 3 Months Insurance Care Teams Team MemberRelationshipSpecialtyStart DateEnd Date Donavon Handy, HUNTER TRAPPER-GROUND SURVEILLANCE SYSTEMS OPERATOR [address] [place] [address] PCP - GeneralInternal Medicine09/18/24 SHASHANK BERNABE Psychiatry10/08/16
--- OUTSIDE RECORDS SUMMARY | 2024-12-09 06:01 | XMS_ITS | Clinical Summary ---
Author Organization [facility] Address [address] [place] [address] Care Team Providers Care Mri Assistant Name Role Phone Unallocated, Noms Provider MD Primary Care Provi kodak Allergies Active AllergyReactionsCriticalityNoted DateCommentsIodinated Contrast Media 12/25/2022 Other Reaction(s): hives Latex12/25/2022 Other Reaction(s): Unknown Bhooomybnhexscaysk76/10/2023 Other Reaction(s): nausea/vomitting Ibsoopcy56/10/2023 Other Reaction(s): hives Other12/25/2022 Other Reaction(s): Unknown Yswoobiyizdoe52/13/2024 Other Reaction(s): hives Wrdysspguts94/10/2023 Other Reaction(s): hives Medications MedicationSigDispense QuantityRefillsLast FilledStart DateEnd DateStatus hydroxychloroquine (Plaquenil) 200 MG tablet Take 200 mg by mouth in the morning.03/10/2022ctive traZODone (Desyrel) 100 MG tablet Take 100 mg by mouth at bedtime.Active PARoxetine (Paxil) 40 MG tablet Take 40 mg by mouth in the morning.10/18/2022ctive omeprazole (PriLOSEC) [address] capsule 20 mg.Active NON FORMULARY BiotinActive Melatonin 10 MG capsule Take by mouth.Active cholecalciferol (D-3-5) 125 MCG (5000 UT) capsule Take by mouth.Active doxycycline (Vibra-Tabs) 100 MG tablet Take 100 mg by mouth in the morning and 100 mg before bedtime.04/15/2023ctive lactulose (Constulose) 10 GM/15ML solution take 15 milliliters by mouth every ajmclzt8101/19/2023ctive lisinopril-hydroCHLOROthiazide 10-12.5 MG tablet Take 1 tablet by mouth in the morning.04/15/2023ctive predniSONE (Deltasone) 10 MG tablet Indications:Arthritis of left subtalar joint,Post-traumatic arthritis of left foot,Pain in joint involving left ankle and foot1 tablet twice daily x 7 days; followed by 1 tablet daily as directed until complete 21 tablet 10/20/2023ctive Active Problems ProblemNoted DateDiagnosed DateAbdominal pain07/22/2023cute bronchitis 07/22/2023nemia associated with acute blood loss07/22/2023ommunity acquired nfponhkqg46/06/2024Elevated blood pressure roglibi5007/22/2023Hypertension 07/22/2023Hypokalemia due to loss of mesxughuv82/06/4724Urotnnfpa52/06/2024Left lower quadrant pain07/22/2023Low back pain07/22/2023Lower GI dtreecwx44/06/2024 Bhxpqeujhxebd19/06/3913Phfprobxnp11/06/2024urrent moderate episode of major depressive disorder without prior fbezchs3804/15/2023hronic pain12/25/2022 Hsfifdvsqv73/10/2023symmetric SNHL (sensorineural hearing loss)12/25/2022 Unilateral primary osteoarthritis, right knee3Abnormal CT of the hsaobet3612/25/20223051Okdxixdegyddxc87/10/2023Benign paroxysmal positional vertigo due to bilateral vestibular vtwgvrfy49/09/2023cute diastolic CHF (congestive heart failure)01/20/2022enign neoplasm of cerebral jdeznykl82/26/2022Bilateral kgebmlga28/26/2022Mass of uterine boupna1309/09/2021rimary osteoarthritis 09/09/2021ensorineural hearing loss, sabfpxieb12/26/2022Localized, primary osteoarthritis of hand09/09/2021ardiac dxisao0107/16/2019Chest wall pain 01/28/2019History of influenza czhunaniy04/14/2019Fluid retention in legs 12/05/2018Seasonal allergic rhinitis due to abuteb0606/20/2018Restless legs oxawpmuv37/17/2018Acute allergic gmoeovus17/22/2018GERD without esophagitis 10/14/2016Medicare annual wellness visit, efkdgnrezd59/30/2017Primary insomnia 10/14/2016Vasculitis of skin12/14/2014Constipation by delayed colonic transit 11/18/2011Epigastric pain11/10/2011Weight loss11/10/2011Pain05/14/2011Otitis media03/05/2011Monoclonal rwhfgyndvi02/16/2011Sjogren's /04/2011 Encounters DateTypeDepartmentCare MffzDxaoaxmafqn67/08/2025 2:00 PM EDTClinical Support [facility] [address] [place] [id number] Fatoumata Fry CCC-A Sensorineural hearing loss (SNHL) of both ears (Primary Dx)11/22/2024amboo flowsheet [facility] [address] [place] [id number] Fatoumata Fry CCC-A from Last 3 Months Immunizations ImmunizationAdministration DatesNext DuePneumococcal Conjugate PCV 131 Pneumococcal Polysaccharide TKEF5186 Family History Medical HistoryRelationNameCommentscolostomyBrotherCancerFatherHeart disease FatherHypertensionFatherCancerMotherHeart diseaseMotherRelationNameStatus VikghcolRwjuykwr6FyxzmpXmsoyzabKxdaphFthykwauTihjeqb3BydAbnwdc5 Social History Tobacco UseTypesPacks/DayYears UsedDateSmoking Tobacco: NeverSmokeless Tobacco: Never Tobacco Cessation:Counseling Given: Not Answered Alcohol UseStandard Drinks/WeekCommentsNever0 (1 standard drink = 0.6 oz pure alcohol)caffeine: 1-2 cups per dayCommentsUnknownSex and Gender InformationValueDate RecordedSex Assigned at BirthNot on fileLegal SexFemale 04/29/2022 7:11 PM EDTGender IdentityNot on fileSexual OrientationNot on file Last Filed Vital Signs Vital SignReadingTime TakenCommentsBlood Sadjevpn806/7906/01/2024 11:30 AM EDT Pulse--Temperature--Respiratory Rate--Oxygen Saturation--Inhaled Oxygen Concentration--Hadvty23.1 kg (170 lb)10/20/2023 10:49 AM GJSRimymd600 cm (5' 3 ) 10/20/2023 10:49 AM EDTBody Mass Index30.11010/20/2023 10:49 AM EDT Plan of Treatment Health MaintenanceDue DateLast DoneCommentsInfluenza Vaccine (#1)10/16/2024 Pneumococcal Vaccine: 65+ SwrsdKyjyzmlzn29/10/2018, 09/18/2010 Insurance Care Teams Team MemberRelationshipSpecialtyStart DateEnd Date Unallocated, Noms Provider, [address] [facility], [place] [id number] PCP - Cmdwitf85/10/23
[2024-12-09] MEDS: DIPHENHYDRAMINE HCL 50 MG/ML VIAL IVP (06:04)
--- NOTE | 2024-12-09 06:07 | ED.ALLEREA1 ---
HPI - Allergic Reaction General Chief complaint: Allergic Reaction Stated complaint: SWOLLEN TONGUE & DIZZINESS Time Seen by Provider: 12/09/24 06:01 History of Present Illness HPI narrative: patient states she was started on Sinemet last week for Parkinsons. This AM woke up to go to the bathroom and noticed her tongue was swollen. Feels like she is going to swallow her tongue. No chest pain or dyspnea. Related Data Home Medications ?Medication ?Instructions ?Recorded ?Confirmed hydroxychloroquine 200 mg tablet 200 mg PO DAILY 12/09/24 12/09/24 Allergies Allergy/AdvReac Type Severity Reaction Status Date / Time No Known Drug Allergies Allergy Verified 12/09/24 06:02 Review of Systems ROS Status of ROS 10 or more systems reviewed and unremarkable except as noted in history and below PFSH PFSH Social History Little interest or pleasure in doing things: not at all Feeling down, depressed, or hopeless: not at all Exam Constitutional Common normals: oriented x3, healthy appearing, alert and well nourished General appearance: in distress HENMT Common normals: normocephalic and head/scalp atraumatic Face and sinus images:  1. swelling and sensation of tightness at this site in addition to her tongue being swollen Mouth images:  1. swollen tongue Teeth and gingiva: other (1/2 of tongue is swollen. voice is clear) Eye Common normals: EOMs intact bilaterally and conjunctivae normal Respiratory Common normals: normal respiratory effort, no retractions, no use of accessory muscles and clear to auscultation bilaterally Cardio Rate: tachycardic GI Common normals: Normal to inspection, nondistended, normoactive bowel sounds present, soft to palpation and non-tender Extremity Common normals: normal to inspection and full ROM Extremity image (front):  1. hematoma 2. gen. mild sweling Neuro Common normals: oriented x3, CN's II-XII intact bilaterally, moves all extremities and no focal motor deficits Psych Appearance: grossly normal MDM - Allergic Reaction MDM Narrative Medical decision making narrative: patient started Sinemet last week for Parkinson. She also takes Zestoretic. Now presents one hour after she noticed swelling of her tongue. States she woke up to go to the bathroom and noticed her tongue swollen. Also her anterior neck overlying the cricoid also is tight and not as loose as usual. Voice is clear. Neg stridor. Clincally she has angioedema. IV established and patient given solumedrol, benadryl and pepcid. BP elevated. Patient given dose of Labetalol. She does have swelling of her right knee and hematoma right distal thigh from fall last week care transferred at change of shift Discharge Plan Discharge Patient Disposition: Still a Patient
[2024-12-09] MEDS: FAMOTIDINE/PF 20 MG/2 ML VIAL IV (06:08)
[2024-12-09] MEDS: METHYLPREDNISOLONE SOD SUCC PF 125 MG/2 ML VIAL IVP (06:08)
[2024-12-09 06:13] LABS: Hematocrit 31.2 % (36.0-48.0); Hemoglobin 9.5 g/dL (12.0-16.0); Immature Granulocytes Abs Auto 0.02 10^3/uL (0.00-0.03); Immature Granulocytes Pct Auto 0.3 % (0.0-0.5); Lymphocytes Absolute Auto 1.1 10^3/uL (1.2-3.8); Mean Corpuscular HGB Conc 30.4 g/dL (29.9-35.2); Mean Corpuscular Hemoglobin 25.7 pg (26.7-34.0); Mean Corpuscular Volume 84.3 fL (81.0-99.0); Platelet Count 454 10^3/uL (150-450); Red Blood Count 3.70 10^6/uL (4.20-5.40); White Blood Count 6.4 10^3/uL (4.0-11.0)
--- NOTE | 2024-12-09 06:28 | PC.NURSE ---
Right lower leg from mid thigh to foot is swollen with large hematoma inner thigh.
[2024-12-09 06:31] LABS: Anion Gap 12.1; Blood Urea Nitrogen 16.0 mg/dL (7.0-18.0); Calcium 8.6 mg/dL (8.5-10.1); Carbon Dioxide 28.6 mmol/L (21.0-32.0); Chloride 99 mmol/L (98-107); Estimated GFR (African America 60 (>=60 mL/min/1.73m^2); Estimated GFR (Non-African Ame 49 (>=60 mL/min/1.73m^2); Glucose 124 mg/dL (74-106); Potassium 3.7 mmol/L (3.5-5.1); Sodium 136 mmol/L (136-145)
[2024-12-09 06:34] LABS: Lactate/Lactic Acid 0.8 mmol/L (0.4-2.0)
[2024-12-09] MEDS: LABETALOL HCL 20 MG/4 ML SYRINGE IVP (06:46)
== END 2024-12-09 08:28 | disposition home or self-care (01) ==
PROVIDERS: Emergency Provider Internal Medicine; PCP Nurse Practitioner
DX: T78.3XXA Angioneurotic edema, initial encounter (principal); G20.A1 Parkinson's disease without dyskinesia, without mention of fluctuations; Z79.899 Other long term (current) drug therapy
CPT/HCPCS: 36415; 80048; 83605; 84484; 85025; 96374; 96375; 99284; J1200; J1920; J2919; J3490

== ENCOUNTER 2024-12-09 12:10 | Emergency (ER) | payer MEDICARE, SELFPAY ==
[2024-12-09 12:14] VITALS: BP 159/64; PULSE 77; TEMP 36.5; O2SAT 95; BMI 30.2
--- NOTE | 2024-12-09 12:20 | CT_ITS ---
The [address] [address] Patient Name: ONEAL RASCON MRN: [id number] date: 1935 Sex: F Assigned Patient Location: ER Current Patient Location: Accession/Order Number: [id number] Exam Date: 12/09/2024 12:38 Report Date: 12/09/2024 13:42 At the request of: SUE JAVIER DO Procedure: CT soft tissue neck wo con CT soft tissue neck without contrast TECHNIQUE: The CT exam was performed using one or more the following dose reduction techniques: Automated exposure control, adjustment of the MA and/or Kv according to patient size, or use of the iterative reconstruction technique. COMPARISON: None HISTORY: Neck swelling. Recent angioedema. Seroma. Allergic reaction. Increased swelling. IV dye allergy Lack of IV contrast limits assessment. Fatty stranding anterior portion of the suggesting edema. No fluid collections identified. No subcutaneous air. Airway midline and patent. Artifact from dental fillings limits assessment of the oral cavity. No gross abnormality seen. Nasopharynx, oropharynx and hypopharynx are patent without abnormality. No laryngeal abnormality identified. Multilevel cervical degenerative changes. Normal epiglottis. No prevertebral soft tissue swelling. Parotid and submandibular glands symmetric without abnormality. Thyroid gland normal. Minor interstitial changes of the lung apices. No adenopathy. 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 CT/CT soft tissue neck wo con IMPRESSION: Anterior neck soft tissue edema submandibular region. No fluid collections. No subcutaneous air. Patent midline airway. No mass effect. Impression dictated by: Arden Crow M.D. 12/09/2024 1:42 PM Dictation Location: [employer] Electronically authenticated by: [id number] Y Date: 12/09/2024 13:42
--- OUTSIDE RECORDS SUMMARY | 2024-12-09 12:22 | XMS_ITS | Clinical Summary ---
Author Organization [facility] Address [address] [place], [place] [id number] Care Team Providers Care Pairer Substandard Name Role Phone Jb Bowling MD Unavailable [phone] Gaby Dominguez RESEARCH & ANALYTICS MANAGER Unavailable [phone] Gaby Dominguez RESEARCH & ANALYTICS MANAGER Primary Care Provider [phone] Allergies Active AllergyReactionsCriticalityNoted DateCommentsGloves, NpfpgQrjr98/17/2007 Kidney Dye [Other]08/31/2006 Throat swells, welts JdnarfgoSurqr57/15/6419Euoighbkmaa50/17/2007 Throat swells, welts Medications MedicationSigDispense QuantityRefillsLast FilledStart [...] INCH RIBBON TO LEFT EYE EVERY NIGHT MOMXAOFA43/03/2023ctive trifluridine (VIROPTIC) 1 % ophthalmic solution INSTILL [...] DateDiagnosed DateVasculitis of skin12/14/2014Constipation 11/18/2011Epigastric pain11/10/2011Weight loss11/10/2011Pain05/14/2011Monoclonal rwqdtqyvwz21/16/2011Sjogren's jhomvekp19/04/2011 Immunizations ImmunizationAdministration DatesNext Duepneumococcal polysaccharide (PPV23) vaccine, 23 valent (PNEUMOVAX 23)09/18/2010 Family History Medical HistoryRelationCommentsHeartBrother 3s/p open heart surgeryStrokeBrother 4CancerFatherCancerMotherKidney DiseaseSister 3RelationStatusCommentsBrother 1 (Age 61)Brother 8Ueqyv1 living brothersBrother 3Brother 4FatherDeceased (Age 91)MotherDeceased (Age 71)Sister 1Deceased (Age 75)Sister 7Ohcpx6 living sisterSister 3 Social History Tobacco UseTypesPacks/DayYears UsedDateSmoking Tobacco: NeverSmokeless Tobacco: Never Tobacco Cessation:Counseling Given: Not Answered Alcohol UseStandard Drinks/WeekCommentsNo0 (1 standard drink = 0.6 oz pure alcohol)CommentsNoSex and Gender InformationValueDate RecordedSex Assigned at BirthNot on fileLegal NmbZrbcct07/02/2012 8:52 AM ESTGender Identity Not on fileSexual OrientationNot on file Last Filed Vital Signs Vital SignReadingTime TakenCommentsBlood Ttpnfrns668/5904 11:07 AM EDT Ptoqd0145 11:07 AM AEYLbvqhlvitlw23.5 ??C (97.7 ??F)03/10/2022 3:43 PM ESTRespiratory Lxyn228410/03/2014 12:41 PM EDTOxygen Zieexdaxcr64%05/19/2022 11:07 AM EDTInhaled Oxygen Concentration--Jtnvqq58.7 kg (169 lb)05/19/2022 11:07 AM HNMWzcoou465.8 cm (5' 2.5 )05/19/2022 11:07 AM EDTBody Mass Index30.4204 11:07 AM EDT Plan of Treatment Health MaintenanceDue DateLast DoneCommentsAnxiety Fxyjwigpf68/22/1955Depression Djynzhzil99/22/1955DTaP,Tdap,Td Vaccine (1 - Tdap)12/07/1955Shingrix Vaccine (1 of 2)1986Bone Density Nfcqgmrys49/22/2002RSV Vaccine (1 - 1-dose 75+ series)12/07/2011dvance Directive Kpfrfmulfl23/01/2025Medicare Advantage Annual Wellness Visit02/16/2024ovid-19 Vaccine (1 - 2024- season)2024 Influenza Vaccine (#1)2024Diabetes Otwxhnvit71/20/948107/, 03/23/2022, 01/20/2022, Additional history existsPneumococcal Vaccine: 50+ Qwtddztoy13/10/2018, 09/18/2010 Procedures Procedure NamePriorityDate/TimeAssociated DiagnosisCommentsCOMPREHENSIVE METABOLIC TVMIKHfawxqq29/19/2015 9:56 AM EDT Monoclonal gammopathy from Last 3 Months or Most Recently Relevant to Health Maintenance Results * (ABNORMAL) COMP METABOLIC PANEL (10/03/2014 9:56 AM EDT)ComponentValueRef RangeTest MethodAnalysis TimePerformed AtPathologist SignatureProtein, Total 8.36.0 - 8.4 g/dL10/03/2014 11:51 AM [facility] Albumin4.33.5 - 5.0 g/dL10/03/2014 11:51 AM [facility] LABORATORYCalcium9.18.5 - 10.5 mg/dL10/03/2014 11:51 AM [facility] LABORATORYBilirubin, Total0.20.0 - 1.5 mg/dL10/03/2014 11:51 AM EDT [facility]ORYAlkaline Hbvukscfaqz9729 - 150 U/L10/03/2014 11:51 AM [facility] VOHWDFUYIIVHM468 - 40 U/L10/03/2014 11:51 AM [facility] YQUAXFXABVPbvtywm10(L)65 - 100 mg/dL10/03/2014 11:51 AM [facility] KDIYQEKCJBWKO680 - 25 mg/dL10/03/2014 11:51 AM [facility] LABORATORYCreatinine0.960.70 - 1.40 mg/dL10/03/2014 11:51 AM [facility] PQPETJCUIGDghghb449283 - 148 mmol/L 10/03/2014 11:51 AM [facility] LABORATORYPotassium3.63.5 - 5.0 mmol/L10/03/2014 11:51 AM [facility] LRCQIEJCCDHetjexzk45808 - 110 mmol/L10/03/2014 11:51 AM [facility] VNVVLFSSWMTK85901 - 32 mmol/L10/03/2014 11:51 AM [facility] LABORATORYAnion Uha742 - 15 mmol/L10/03/2014 11:51 AM [facility] UEHSEHQLMUJQY66 - 45 U/L 10/03/2014 11:51 AM [facility] LABORATORYeGFR- >6008 11:51 AM [facility] LABORATORYeGFR-All Other Races 56.10/03/2014 11:51 AM EDTCGRE[facility]IAL [facility] LABORATORYComment: eGFR (Estimated GFR) Units [...] Bess Vieira DOLABORATORYFinal ResultPerforming OrganizationAddressCity/State/ZIP CodePhone Number [facility] [address] [place] [address] from Last 3 Months or Most Recently Relevant to Health Maintenance Insurance Care Teams Team MemberRelationshipSpecialtyStart DateEnd Gaby Dominguez CNP [address] [place] [address] PCP - GeneralInternal Medicine03/17/21 Jb Bowling MD [address] [place] [address] Primary Staff PhysicianCardiology05/03/18 Gaby Dominguez RESEARCH & ANALYTICS MANAGER [address] [place] [address] Internal Medicine03/12/21
--- OUTSIDE RECORDS SUMMARY | 2024-12-09 12:22 | XMS_ITS | Clinical Summary ---
Author Organization [employer] tem Address [id number] [address] [place] [address] Care Team Providers Care Bakery Machine Mechanic Supervisor Name Role Phone Donavon Handy APRN-SEMIAUTOMATIC TAPER OPERATOR Primary Care Provider + Allergies Active AllergyReactionsCriticalityNoted DateCommentsIodinated Contrast Media 10/06/2016Latex, Natural Sommvi6610/06/20161827Vkgarkyoiapgulwojq55/27/2021 Other reaction(s): nausea/vomitting Zkzboxtw67/22/5160Uuflmxuguqj43/22/2017 Medications MedicationSigDispense QuantityRefillsLast FilledStart DateEnd DateStatus melatonin 10 mg capsule Take by mouth.Active CONSTULOSE 10 gram/15 mL solution take 15 milliliters by mouth every gjneqkd1801/19/2023ctive cholecalciferol, vitamin D3, (VITAMIN D3) 5,000 units [...] mg total) by mouth in the morning.10/20/2023ctive ybgoskbqbag-dzegsnnen-libepwwk (TRELEGY ELLIPTA) 100-62.5-25 mcg blister with device [...] of major depressive disorder without prior episode ([facility])Take 1 tablet (40 mg total) by mouth in the morning. 90 tablet ctive hydroxychloroquine (PLAQUENIL) 200 mg tablet Indications:Disorder of lung with Sjogren's syndrome ([facility]),Lupus erythematosus, unspecified formtake 1 tablet by mouth every morning 90 tablet ctive CEPHalexin (KEFLEX) 500 mg capsule TAKE 1 CAPSULE BY MOUTH THREE TIMES DAILY FOR 10 DAYS5Active Active Problems ProblemNoted DateDiagnosed HchbOexfdmo91/11/2024Chronic diastolic congestive heart kgyqpkg6304/15/2023urrent moderate episode of major depressive disorder without prior sgbaqjy4204/15/2023Stage 3b chronic kidney disease (CKD)04/15/2023 Bbgttximqluulr13/10/7171Pgnvtzfvxm56/10/2023Benign paroxysmal positional vertigo due to bilateral vestibular poflhrdb56/09/2023Acute diastolic CHF (congestive heart failure)01/20/2022enign neoplasm of cerebral hixrmkui66/26/2022ilateral sensorineural hearing loss09/09/2021ilateral qboohqad16/26/2022Localized, primary osteoarthritis of hand09/09/2021Mass of uterine zyfkrd962Primary qpurycjtubtest24/26/2022ardiac cifqpb2307/16/2019History of influenza pneumonia 01/28/2019Chest wall pain01/28/20192012Nwtbfladqjlt92/21/2019Fluid retention in legs 12/05/2018Seasonal allergic rhinitis due to vcgnoz1106/20/2018Interstitial lung lgulbel4103/08/2018Restless legs ujktgpxt93/17/2018Acute allergic rhinitis 04/08/2017Primary zouncyje05/30/2017GERD without yhkzbenahcp10/30/2017Medicare annual wellness visit, jfrtpwupqa86/30/2017Vasculitis of skin12/14/2014 Monoclonal xjimnhdshw69/16/2011Lupus erythematosusDisorder of lung with Sjogren's syndrome Resolved Problems ProblemNoted DateDiagnosed DateResolved DatePneumonia of right upper lobe due to influenza A virusInfluenza A1Muscle spasms of both lower dobuoschtal31Lumbar muscle pain11/16/2017 08/22/2018 Encounters DateTypeDepartmentCare JevrYctyiadraqr77/21/2025Orders Only [facility] [address] [facility] [address] [address] Ref Prov, Not In System from Last 3 Months Immunizations ImmunizationAdministration DatesNext DuePneumococcal Conjugate 13-Valent 11/24/2017Pneumococcal Grmyaajdjbcntg68/04/2011 Family History Medical HistoryRelationNameCommentsThroat cancerFatherColon cancerMother DepressionSisterBreast cancerNeg HxRelationNameStatusCommentsFatherDeceased MotherDeceasedSister Social History Tobacco UseTypesPacks/DayYears UsedDateSmoking Tobacco: NeverSmokeless Tobacco: NeverAlcohol UseStandard Drinks/WeekCommentsNo0 (1 standard drink = 0.6 oz pure alcohol)PHQ-2AnswerDate RecordedTotal Kkefh453/11/2024ChildcareAnswerDate DjybxgfyXjxmktkqsBczxiyv32/12/2019EmploymentAnswerDate RecordedEmploymentUnknown 07/27/2018Hunger ScreeningAnswerDate RecordedWithin the past 12 months we worried whether our food would run out before we got money to buy more.Never True09/06/2023Within the past 12 months the food we bought just didn't last and we didn't have money to get more.Never True4Purpose - LifeAnswerDate RecordedPurpose and direction in brwgRasdhnq29/19/2021CommentsNoSex and Gender InformationValueDate RecordedSex Assigned at BirthNot on fileLegal Sex Hebtex6009/20/2014 11:25 AM EDTGender IdentityNot on fileSexual OrientationNot on file Last Filed Vital Signs Vital SignReadingTime TakenCommentsBlood Mstlbvmw899/8003 4:26 PM EST Ooygw335204/17/2024 4:26 PM ENGMxcdgqnwaex74.5 ??C (97.7 ??F)04/17/2024 4:26 PM ESTRespiratory Tpxx9629 4:26 PM ESTOxygen Gddyqcfsmd04%04/17/2024 4:26 PM ESTInhaled Oxygen Concentration--Lbkqws15.8 kg (171 lb 9.6 oz)04/17/2024 4:26 PM ILXPqelib786.5 cm (5' 2 )04/17/2024 4:26 PM ESTBody Mass Index31.39004/17/2024 4:26 PM EST Plan of Treatment Health MaintenanceDue DateLast DoneCommentsZoster (Shingles) Vaccine (1 of 2) 1986Influenza Xqvhara4110/16/2024Depression Izheuadbg60 Fall Risk Foxfcsxzn18Medicare Annual Wellness Visit12/26/2024 12/27/2023, 09/09/2021, 02/07/2020, Additional history existsTobacco Screening DTaP,Tdap and Td Vaccines (2 - Td or Tdap)04/07/2034 04/07/2024 Medical Devices Not on file Procedures Procedure NamePriorityDate/TimeAssociated DiagnosisCommentsMULTIPLE LABSRoutine 10/04/2024 9:30 AM EDTCBC W AUTO DIFF KFMQucssws92/20/2025 9:28 AM EDTfrom Last 3 Months Results [...] Teams Team MemberRelationshipSpecialtyStart DateEnd Date Donavon Handy, FLORAL SPECIALIST-SEMIAUTOMATIC TAPER OPERATOR [address] [place] [address] PCP - GeneralInternal Medicine09/18/24 SHASHANK BERNABE Psychiatry10/08/16
--- OUTSIDE RECORDS SUMMARY | 2024-12-09 12:22 | XMS_ITS | Clinical Summary ---
Author Organization [facility] Address [address] [place] [address] Care Team Providers Care Home School Coordinator Name Role Phone Unallocated, Noms Provider MD Primary Care [facility] Allergies Active AllergyReactionsCriticalityNoted DateCommentsIodinated Contrast Media 12/25/2022 Other Reaction(s): hives Latex12/25/2022 Other Reaction(s): Unknown Eistqxajmxflnykdtg11/10/2023 Other Reaction(s): nausea/vomitting Vaufifnz68/10/2023 Other Reaction(s): hives Other12/25/2022 Other Reaction(s): Unknown Nnfmyisqtioea66/13/2024 Other Reaction(s): hives Tfbrnpvbmdb30/10/2023 Other Reaction(s): hives Medications MedicationSigDispense QuantityRefillsLast FilledStart [...] solution take 15 milliliters by mouth every iptdztj6901/19/2023ctive lisinopril-hydroCHLOROthiazide 10-12.5 MG tablet Take 1 tablet [...] 07/22/2023nemia associated with acute blood loss07/22/2023ommunity acquired sbxibyocn2024Elevated blood pressure zkxrktb3607/22/2023Hypertension 07/22/2023Hypokalemia due to loss of aheyjgfwn49/06/0538Mmpjtvckn76/06/2024Left lower quadrant pain07/22/2023Low back pain07/22/2023Lower GI ssnxymtc36/06/2024 Uxbpmxneqqpvn31/06/3493Laxcojndbg61/06/2024urrent moderate episode of major depressive disorder without prior fuqntwn9204/15/2023hronic pain12/25/2022 Gxxmjgldiq04/10/2023symmetric SNHL (sensorineural hearing loss)12/25/2022 Unilateral primary osteoarthritis, right knee3Abnormal CT of the yoazaaw7612/25/20229177Qsyffamxnpuymm83/10/2023Benign paroxysmal positional vertigo due to bilateral vestibular xqhkiuch71/09/2023cute diastolic CHF (congestive heart failure)01/20/2022enign neoplasm of cerebral /26/2022Bilateral pwggraby63/26/2022Mass of uterine bxcldw0509/09/2021rimary osteoarthritis 09/09/2021ensorineural hearing loss, cvmqyuxzd74/26/2022Localized, primary osteoarthritis of hand09/09/2021ardiac ncmbxd2207/16/2019Chest wall pain 01/28/2019History of influenza zufgafhqu85/14/2019Fluid retention in legs 12/05/2018Seasonal allergic rhinitis due to xalknr8006/20/2018Restless legs dqxycxdk88/17/2018Acute allergic mdgwjamu05/22/2018GERD without esophagitis 10/14/2016Medicare annual wellness visit, avrbnklnsv96/30/2017Primary insomnia 10/14/2016Vasculitis of skin12/14/2014Constipation by delayed colonic transit 11/18/2011Epigastric pain11/10/2011Weight loss11/10/2011Pain05/14/2011Otitis media03/05/2011Monoclonal ktvosinbnu13/16/2011Sjogren's /04/2011 Encounters DateTypeDepartmentCare EitsApkpppluqrk53/08/2025 2:00 PM EDTClinical Support [facility] [address] [place] [id number] Fatoumata Fry CCC-A Sensorineural hearing loss (SNHL) of both ears (Primary Dx)11/22/2024amboo flowsheet [facility] [address] [place] [id number] Fatoumata Fry CCC-A from Last 3 Months Immunizations ImmunizationAdministration DatesNext DuePneumococcal Conjugate PCV 131 Pneumococcal Polysaccharide SKZM4620 Family History Medical HistoryRelationNameCommentscolostomyBrotherCancerFatherHeart disease FatherHypertensionFatherCancerMotherHeart diseaseMotherRelationNameStatus ApghpxsvHpczmbfv0ZmmzgnPxfwwploTgkhkaKbaikvrxYocoqxt4SfnEdurjj2 Social History Tobacco UseTypesPacks/DayYears UsedDateSmoking Tobacco: NeverSmokeless Tobacco: Never Tobacco Cessation:Counseling Given: Not Answered Alcohol UseStandard Drinks/WeekCommentsNever0 (1 standard drink = 0.6 oz pure alcohol)caffeine: 1-2 cups per dayCommentsUnknownSex and Gender InformationValueDate RecordedSex Assigned at BirthNot on fileLegal SexFemale 04/29/2022 7:11 PM EDTGender IdentityNot on fileSexual OrientationNot on file Last Filed Vital Signs Vital SignReadingTime TakenCommentsBlood Efgdmdax687/7906/01/2024 11:30 AM EDT Pulse--Temperature--Respiratory Rate--Oxygen Saturation--Inhaled Oxygen Concentration--Xycuop89.1 kg (170 lb)10/20/2023 10:49 AM DOQZhaspk243 cm (5' 3 ) 10/20/2023 10:49 AM EDTBody Mass Index30.11010/20/2023 10:49 AM EDT Plan of Treatment Health MaintenanceDue DateLast DoneCommentsInfluenza Vaccine (#1)10/16/2024 Pneumococcal Vaccine: 65+ LlkueYtcevwqms82/10/2018, 09/18/2010 Insurance Care Teams Team MemberRelationshipSpecialtyStart DateEnd Date Unallocated, Noms Provider, [address] [facility], [place] [id number] PCP - Aipuqte56/10/23
--- OUTSIDE RECORDS SUMMARY | 2024-12-09 12:22 | XMS_ITS | Clinical Summary ---
Author Organization [facility] Address [address] [place] [address] Phone Care Team Providers Care Fur Glazer Name Role Phone Unavailable Primary Care Provider Unavailabl e Social History Tobacco UseTypesPacks/DayYears UsedDateSmoking Tobacco: Never Assessed CommentsUnknownSex and Gender InformationValueDate RecordedSex Assigned at Not on fileLegal RqdXlocew26/26/2022 1:44 AM ESTGender IdentityNot on fileSexual OrientationNot on file Plan of Treatment Not on file
--- NOTE | 2024-12-09 18:07 | ED.GENADUL1 ---
HPI HPI - General Adult General Chief complaint: Allergic Reaction Stated complaint: FACE SWELLING Time Seen by Provider: 12/09/24 12:15 Source: patient Mode of arrival: walk-in History of Present Illness HPI narrative: Patient is an 89-year-old female presenting to the emergency department for concerns of swelling under her chin/neck. The patient was just discharged from our ED 4 hours ago for angioedema, suspected RHETT induced. Since her discharge, she states that her tongue/lip/facial swelling has completely resolved. However, she started noticing some fluid/swelling under her chin. She denies any other symptoms. She denies any chest pain or shortness of breath. No trouble breathing or swallowing. She states her voice sounds normal. Related Data Home Medications ?Medication ?Instructions ?Recorded ?Confirmed carbidopa 25 mg-levodopa 100 mg 0.5 tab PO TID 12/09/24 12/09/24 tablet hydroxychloroquine 200 mg tablet 200 mg PO DAILY 12/09/24 12/09/24 lisinopril 20 1 tab PO DAILY 12/09/24 12/09/24 mg-hydrochlorothiazide 12.5 mg tablet paroxetine HCl 40 mg tablet 40 mg PO DAILY 12/09/24 12/09/24 Allergies Allergy/AdvReac Type Severity Reaction Status Date / Time No Known Drug Allergies Allergy Verified 12/09/24 06:02 Review of Systems ROS Status of ROS 10 or more systems reviewed and unremarkable except as noted in history and below PFSH PFSH Social History Little interest or pleasure in doing things: not at all Feeling down, depressed, or hopeless: not at all Exam Narrative Exam Narrative: CONSTITUTIONAL: Well-appearing, answering questions and following commands appropriately, speaking with a normal voice SKIN: Was warm and dry. EYES: Sclerae white. No periorbital edema. EARS, NOSE, THROAT: She has normal ENT exam without facial swelling, lip swelling, tongue swelling, or evidence of angioedema. Underneath her chin/anterior neck has a dependent fluid collection in her redundant skin. Her neck is not tender, fluctuant, erythematous, or firm. She has full range of motion of the neck. RESPIRATORY: Clear to auscultation bilaterally, no wheezes, crackles, or stridor, no use of accessory muscles CARDIOVASCULAR: Normal rate and regular rhythm. There is no S3, S4, murmur, rub. GASTROINTESTINAL: Abdomen is nondistended. MUSCULOSKELETAL: No peripheral edema. NEUROLOGIC: Patient is awake and alert. Facies were symmetrical. Constitutional Vital Signs, click to edit/add: Last Vital Signs Temp 97.7 F 12/09/24 12:14 Pulse 77 12/09/24 12:14 Resp 20 12/09/24 12:14 BP 159/64 H 12/09/24 12:14 Pulse Ox 95 12/09/24 12:14 O2 Del Method Room Air 12/09/24 12:14 Course Vital Signs Vital signs: Vital Signs Temperature 97.7 F 12/09/24 12:14 Pulse Rate 77 12/09/24 12:14 Respiratory Rate 20 12/09/24 12:14 Blood Pressure 159/64 H 12/09/24 12:14 Pulse Oximetry 95 12/09/24 12:14 Oxygen Delivery Method Room Air 12/09/24 12:14 Temperature 97.7 F 12/09/24 12:14 Pulse Rate 77 12/09/24 12:14 Respiratory Rate 20 12/09/24 12:14 Blood Pressure 159/64 H 12/09/24 12:14 Pulse Oximetry 95 12/09/24 12:14 Oxygen Delivery Method Room Air 12/09/24 12:14 Medical Decision Making MDM Narrative Medical decision making narrative: Patient is an 89-year-old female presenting to the emergency department for evaluation of fluid under her chin/anterior neck. Patient was discharged by myself 4 hours ago for a RHETT inhibitor induced angioedema. Her vital signs on arrival during this visit are within normal limits. Her symptoms of angioedema have completely resolved. She no longer has any tongue or facial swelling. She is speaking with a normal voice and protecting her airway. In regards to the patient's complaints, this appears to be a gravity dependent fluid collection which may be related to recent inflammatory changes from the angioedema. Low concern for infection or Shawn's angina. CT neck without contrast is ordered as she is allergic to IV contrast CT of the neck independently reviewed and interpreted by myself and radiology demonstrated anterior neck soft tissue edema in the submandibular region. No fluid collections. No subcutaneous air. Patent midline airway. No mass effect. I do believe the patient is stable for discharge. They were instructed to follow up with her PCP for further care. Return precautions were given including any new or worsening symptoms. Patient understands and agrees to the plan. FINAL IMPRESSION: #Acute soft tissue edema of the neck #History of recently resolved angioedema DISPOSITION: Discharged home CONDITION: Good Imaging Data CT neck: Attestation: I personally reviewed and interpreted this imaging study as follows: Radiologist's impression: ITS Impressions Soft Tissue Neck CT 12/09/24 12:20 IMPRESSION: Anterior neck soft tissue edema submandibular region. No fluid collections. No subcutaneous air. Patent midline airway. No mass effect. Impression dictated by: Arden Crow M.D. 12/09/2024 1:42 PM Dictation Location: [employer] Electronically authenticated by: [id number] Y Date: 12/09/2024 13:42 Discharge Plan Discharge Chief Complaint: Allergic Reaction Clinical Impression: Edema noted on examination Patient Disposition: Home, Self-Care Prescriptions / Home Meds: No Action hydroxychloroquine 200 mg tablet 200 mg PO DAILY lisinopril-hydrochlorothiazide 20-12.5 mg tablet 1 tab PO DAILY paroxetine HCl 40 mg tablet 40 mg PO DAILY carbidopa-levodopa 25-100 mg tablet 0.5 tab PO TID Print Language: Tanzanian Instructions: Edema (ED) Referrals: KELVIN NEVILLE [Primary Care Provider, Unknown] - 1 week Discharge Date/Time: 12/09/24 13:59
== END 2024-12-09 13:59 | disposition home or self-care (01) ==
PROVIDERS: Emergency Provider Student in an Organized Health Care Education/Training Program; PCP Nurse Practitioner
DX: R60.0 Localized edema (principal); T78.3XXA Angioneurotic edema, initial encounter; G20.A1 Parkinson's disease without dyskinesia, without mention of fluctuations; Z79.899 Other long term (current) drug therapy
CPT/HCPCS: 36415; 70490; 80048; 83605; 84484; 85025; 96374; 96375; 99284; J1200; J1920; J2919; J3490